=== PATIENT | male | born 1935 | race Caucasian/White ===

== ENCOUNTER 2020-04-09 11:09 | Outpatient (RCR) | payer MEDICARE, SELFPAY | END 2020-04-09 23:59 | LOC: IMMUN 11:09 | PROVIDERS: Visit Provider Family Medicine | DX: Z23 Encounter for immunization (principal) | CPT/HCPCS: 0011A; 0012A; 91301 ==

== ENCOUNTER → 2022-01-02 | Outpatient (CLI) | payer MEDICARE, SELFPAY ==
[2022-01-02 10:26] LABS: PSA,Total- Diagnostic 2.88 ng/mL (0.0-4.0)
== END | disposition home or self-care (01) ==
PROVIDERS: Referring Provider Urology; Visit Provider Urology
DX: N40.1 Benign prostatic hyperplasia with lower urinary tract symptoms (principal)
CPT/HCPCS: 36415; 84153

== ENCOUNTER 2022-01-18 12:05 | Observation (INO) | payer MEDICARE, SELFPAY ==
--- NOTE | 2022-01-16 07:42 | EKG12_ITS ---
Test Reason : PREOP Blood Pressure : / mmHG Vent. Rate : 090 BPM Atrial Rate : 090 BPM P-R Int : 162 ms QRS Dur : 144 ms QT Int : 400 ms P-R-T Axes : 045 -89 054 degrees QTc Int : 489 ms Normal sinus rhythm Right bundle branch block Left anterior fascicular block Bifascicular block Septal infarct , age undetermined Abnormal ECG Confirmed by PABLO CHIU, LAYNE ([id number]), newspaper or periodical editor TAO WEN ([id number]) on 01/17/2022 1:16:58 PM Referred By: Fernie Michelle Confirmed By:LAYNE SHAH MD
[2022-01-16 08:07] LABS: Hematocrit 43.5 % (40-54); Hemoglobin 14.4 g/dL (13.0-16.5); Mean Corp Hgb Conc 33.1 g/dL (32-36); Mean Corpuscular Hgb 30.9 pg (27.0-32.0); Mean Corpuscular Volume 93.3 fL (80-94); Mean Platelet Vol. 9.2 fl (6.2-12.0); Platelet Count 159 K/mm3 (150-450); RBC Distribution Width CV 13.8 % (11.6-14.6); RBC Distribution Width SD 47.4 fl (35.1-43.9); Red Blood Count 4.66 M/mm3 (4.6-6.2); White Blood Count 6.8 K/mm3 (4.4-11.0)
[2022-01-16 08:32] LABS: AST(SGOT) 15 U/L (15-37); Alanine Aminotransfer ALT/SGPT 17 U/L (16-61); Albumin, Serum 3.2 g/dL (3.2-5.0); Alkaline Phosphatase 70 U/L (45-117); Anion Gap 9 (5-15); BUN 19 mg/dL (7-18); BUN/Creat Ratio 16.2 RATIO (10-20); Bilirubin, Direct 0.15 mg/dL (0.00-0.30); Calcium,Total 8.8 mg/dL (8.5-10.1); Chloride 104 mmol/L (98-107); Creatinine, Serum 1.17 mg/dL (0.70-1.30); EST Glomerular Filtration Rate 63 mL/min (>60); Est Glom Filt Rate - Afr Amer 76 mL/min (>60); Globulin 3.5 g/dL (2.2-4.2); Glucose 128 mg/dL (74-106); Potassium 3.5 mmol/L (3.5-5.1); Protein, Total 6.7 g/dL (6.4-8.2); Sodium Level 141 mmol/L (136-145)
[2022-01-16 08:37] LABS: Partial Thromboplast Time 31.4 Seconds (24.1-36.2)
[2022-01-16 10:14] LABS: International Normalized Ratio 1.2; Prothrombin Time (Protime)PT. 14.8 SECONDS (11.7-14.9)
[2022-01-18] VITALS (12 sets, daily range): BP systolic 96–169; BP diastolic 47–82; PULSE 60–86; RESP 14–18; TEMP 36.3–37.1; O2SAT 92–99; BMI 30.7
[2022-01-18] MEDS: Lactated Ringers 1,000 ML 15 ML IV (11:15)
[2022-01-18] MEDS: Cefazolin 2 GM in 0.9% Normal Saline 100 ML IV (11:52)
--- NOTE | 2022-01-18 12:06 | DCINST_ITS ---
Discharge Instructions Diet Discharge Diet: No restrictions Follow Up Care Please Follow Up With: Fernie Michelle MD Test Results: Test results from this visit will be discussed in further detail at your follow- up appointment, if applicable. Discharge Plan Admission Primary Reason for Your Visit: hawa Attending Provider: Fernie Michelle Primary Care Provider: Agusto Wong Consulting Providers: Estevan Angulo Instructions Patient Instructions: HAWA Home Recovery Discharge Orders/Prescriptions Prescriptions: New ciprofloxacin HCl [Cipro] 500 mg tablet 500 mg PO BID Qty: 6 0RF Continued donepezil 10 mg Tablet 10 mg PO QHS simvastatin 40 mg Tablet 40 mg PO DAILY ascorbic acid (vitamin C) [Vitamin C] 500 mg Tablet 500 mg PO DAILY zinc 50 mg Tablet 50 mg PO DAILY cyanocobalamin-liver extract Tablet 1 tab PO DAILY cholecalciferol (vitamin D3) [Vitamin D3] 25 mcg (1,000 unit) Tablet 25 mcg PO DAILY loratadine 10 mg Capsule 10 mg PO DAILY PRN (Reason: ALLERGIES) Discontinued tamsulosin [Flomax] 0.4 mg Capsule 0.4 mg PO DAILY finasteride 5 mg Tablet 5 mg PO DAILY Other Ambulatory Orders: 12 Lead EKG (Routine) Timeframe: [id number] Location: None Selected Ordered By: Dr. Estevan Angulo Referrals / Follow Up: Fernie Michelle MD [Med Staff - Active Staff] - Agusto Wong DO [Primary Care Provider] - Disposition Disposition (needs filled in before D/C Order can be placed): Home, Self Care
--- NOTE | 2022-01-18 12:06 | HP.PCM_ITS ---
HPI - General HPI Narrative PAWAN JOSEPH, is a 86 M who presents for transurethral resection of the prostate he has very poor bladder control been having incontinence and leakage of urine hopefully with a resection of the prostate will improve his bladder control [facility] Medical History (Updated 01/11/22 @ 15:[address]) Alcohol use Ambulates with cane Arthritis Back pain Cancer Cardiology follow-up encounter Dementia Easy bruising Former smoker High cholesterol History of edema History of stress test Hypertension Leg cramps Prostate disease Shortness of breath on exertion Wears dentures Wears glasses Wears hearing aid Home Medications ascorbic acid (vitamin C) 500 mg tablet (Vitamin C) 500 mg PO DAILY SUPPLEMENT 01/11/22 [History Last Taken Unknown] cholecalciferol (vitamin D3) 25 mcg (1,000 unit) tablet (Vitamin D3) 25 mcg PO DAILY SUPPLEMENT 01/11/22 [History Last Taken Unknown] cyanocobalamin-liver extract tablet 1 tab PO DAILY SUPPLEMENT 01/11/22 [History Last Taken Unknown] donepezil 10 mg tablet 10 mg PO QHS DEMENTIA 01/11/22 [History Last Taken Unknown] loratadine 10 mg capsule 10 mg PO DAILY PRN ALLERGIES 01/11/22 [History Last Taken Unknown] simvastatin 40 mg tablet 40 mg PO DAILY HLD 01/11/22 [History Last Taken Unknown] zinc 50 mg tablet 50 mg PO DAILY SUPPLEMENT 01/11/22 [History Last Taken Unknown] ciprofloxacin HCl 500 mg tablet (Cipro) 500 mg PO BID #6 tabs 01/18/22 [Rx Last Taken Unknown] Allergy/AdvReac Type Severity Reaction Status Date / Time Penicillins AdvReac Vomiting Verified 01/18/22 11:01 Surgical History (Updated 01/11/22 @ 15:[address]) History of colectomy History of excision of lesion Hx of appendectomy Hx of bilateral cataract extraction Hx of bladder repair surgery Hx of right knee surgery Hx of tonsillectomy Social History Smoking Status: Former smoker Vital Signs Vital Signs Vital Signs: 01/18/22 11:03 01/18/22 11:05 Temperature 97.4 F L Temperature Source Temporal Pulse Rate 63 Respiratory Rate 18 Respiratory Pattern Normal Blood Pressure 169/82 H Blood Pressure Mean 111 Blood Pressure Source Monitor Blood Pressure Position Semi-Fowlers Blood Pressure Location Right Arm Pulse Ox 99 Oxygen Delivery Method Room Air Weight Weight: 94.574 kg Body Mass Index (BMI) 30.7 Results Lab / Micro Data Result Diagrams: 01/16/22 07:34 01/16/22 07:34
--- NOTE | 2022-01-18 12:07 | OP.PCM_ITS ---
Report of Operation Date of Procedure: 01/18/22 Pre-Operative Diagnosis: BPH with obstruction Post-Operative Diagnosis: BPH with obstruction Surgery/Procedure Performed:: Transurethral section of prostate Description of Surgical Findings:: In the preoperative setting I discussed with the patient how the surgery would be done with expect afterwards. We discussed how a prostate resection is done and we discussed the risk of the surgery including, bleeding, infection, retrograde ejaculation, changes with ejaculation or intercourse,. We discussed the possibility that the resection of the prostate may not alleviate his urinary symptoms. We discussed the small risk of developing scar tissue along the urethral channel and strictures. We also discussed the chance of the prostate could grow back and he may need further surgery or treatment in the future for prostate problems. Patient was taken back to the operating room, timeout procedure was performed, he was identified and marked and placed on the operating room table. He under went general anesthesia. He was placed in dorsolithotomy position. Penis and testicles were prepped and draped in usual sterile fashion. Went into the bladder using the visual obturator with a resectoscope. Once inside the bladder identified the right and left ureteral orifice. I then identified the prostate and the anatomy of the prostate. I marked out the area of the sphincter and the verumontanum was identified. I then proceeded with the prostate resection first resected the median lobe. And then resected the right lobe of the prostate. Then to resect the left lobe of the prostate. I then resected the apical tissue of the prostate. This was a complete resection of all obstructive tissue to improve voiding and relieve obstruction. I then made sure that there was no injury to the sphincter or the verumontanum was still intact. At the end of the resection all the chips were Ellik out of the bladder. I then identified the left and right ureteral orifice and these were confirmed to be in good position and effluxing and not injured. The resectoscope was removed, a 22 Grenadian catheter was placed into the bladder on continuous irrigation. And the urine was fairly light pink color and draining normally. He was taken back to the PACU in good condition. CPT 26835 Surgeon: Fernie Michelle Type of Anesthesia: General Drains: 22 Grenadian three-way Rosales Admit VTE Documentation VTE Present on Admission: No VTE Mechan Device Prophylaxis: SCD's VTE Pharm Prophylaxis ordered?: No
--- NOTE | 2022-01-18 12:45 | PROS_PTH ---
PATIENT: PAWAN JOSEPH LOC: MS3 U#:[id number] AGE/SX: 86/M ROOM: ND305 RE01/18/[address]: Dr. Fernie Michelle MD : [id number] BED: 1 DIS: 01/19/2022 SPEC #: [id number] RECD: 01/18/22 15:14 STATUS: JUAQUIN SUAZO #: [id number] MAIKOL: 01/18/22 12:[address]: Fernie Michelle DEPT: SURGICAL PATHOLOGY RECD BY: Devika Ruiz ENTERED: 01/19/22 09:03 SP TYPE: TURP OTHR DR: MD Dr. Agusto Paul, DO Tissues: Prostate, NOS Procedures: Surgery Specimen Level IV HEADER OPERATION: Cysto, TUR prostate, Olympus PRE-OP DIAGNOSIS: BPH, bladder outlet obstruction TISSUE SUBMITTED: Prostate chips MICROSCOPIC DIAGNOSIS Prostate, transurethral resection: Benign nodular hyperplasia, glandular and stromal types. Chronic inflammation. AM:miranda 01/20/2022 MICROSCOPIC DESCRIPTION Slides are reviewed. GROSS DESCRIPTION Received is one container labeled with the patient's name and designated prostate chips. The specimen consists of multiple irregular fragments of pink-taylor, rubbery, soft tissue that in aggregate weigh 28.6 gm and measure in aggregate 6 x 6 x 2 cm. Manager Solar portions are submitted in ten cassettes. / AM:miranda 01/19/2022 TC:3 CPT: 09777
[2022-01-18] MEDS: 0.9% Normal Saline 1,000 ML 125 ML IV (16:28)
[2022-01-18] MEDS: Atorvastatin Calcium 20 MG Tablet PO (21:48)
[2022-01-18] MEDS: Donepezil HCl 10 MG Tablet PO (21:49)
[2022-01-18] MEDS: Docusate Sodium 100 MG Capsule 200 MG PO (21:49)
[2022-01-18] MEDS: Ciprofloxacin 400 MG/200 ML BAG 200 MG IV (21:53)
[2022-01-19] MEDS: 0.9% Normal Saline 1,000 ML 125 ML IV ×2 (01:05→09:33)
[2022-01-19 02:05] VITALS: BP 120/60; PULSE 74; RESP 16; TEMP 36.6; O2SAT 95
[2022-01-19 05:08] VITALS: BP 112/60; PULSE 72; RESP 16; TEMP 37.2; O2SAT 94
--- NOTE | 2022-01-19 07:36 | PCM.PN.GU ---
Subjective Subjective Status post TURP urine is clear KELLY Rosales today home after voids Objective Data Objective Data Vital Signs: Vital Signs Temp Pulse Resp BP Pulse Ox O2 Del Method 98.9 F 72 16 112/60 94 Room Air 01/19/22 05:08 01/19/22 05:08 01/19/22 05:08 01/19/22 05:08 01/19/22 05:08 01/19/22 05:08 Oxygen Delivery Method Room Air Weight: 94.574 kg Body Mass Index (BMI) 30.7 Intake & Output: Intake and Output for Last 24 Hours 01/17/22 01/18/22 01/19/22 23:59 23:59 23:59 Intake Total 1387.25 / 1387.25 1000 / 1000 Output Total 7270 / 7270 4000 / 4000 Balance -5882.75 / -5882.75 -3000 / -3000 Lab / Micro Data Result Diagrams: 01/16/22 07:34 01/16/22 07:34
[2022-01-19 08:20] VITALS: BP 111/57; PULSE 71; RESP 18; TEMP 37.1; O2SAT 95
[2022-01-19] MEDS: Docusate Sodium 100 MG Capsule 200 MG PO (10:07)
[2022-01-19] MEDS: Ciprofloxacin 400 MG/200 ML BAG 200 MG IV (10:08)
[2022-01-19] MEDS: Acetaminophen 325 MG Tablet PO (10:13)
== END 2022-01-19 14:00 | disposition home or self-care (01) ==
LOC: SDC 12:22 → MS3 12:22
PROVIDERS: Anesthesiology; Admitting Provider Urology; Referring Provider Urology; Visit Provider Urology
PROC: (CPT 52601; principal; 2022-01-18 12:35)
DX: N40.1 Benign prostatic hyperplasia with lower urinary tract symptoms (principal); Z87.891 Personal history of nicotine dependence; E78.00 Pure hypercholesterolemia, unspecified; I10 Essential (primary) hypertension; N13.8 Other obstructive and reflux uropathy; R35.0 Frequency of micturition; R35.1 Nocturia; R32 Unspecified urinary incontinence; Z79.899 Other long term (current) drug therapy; R06.02 Shortness of breath
CPT/HCPCS: 52601; 00914; 36415; 80048; 80076; 85027; 85610; 85730; 88305; 93005; 96361; 96365; 96366; 99218; 99251; J7030; J7120; G0378; G0463; J0744; J2405

== ENCOUNTER → 2022-11-27 | Outpatient (CLI) | payer MEDICARE, SELFPAY | END | disposition home or self-care (01) | LOC: LABSPEC 16:17 | PROVIDERS: Visit Provider Urology | DX: R31.9 Hematuria, unspecified (principal) | CPT/HCPCS: 87077; 87086; 87088; 87186 ==

== ENCOUNTER 2023-06-11 19:12 | Observation (INO) | payer MEDICARE, SELFPAY ==
[2023-06-11 19:04] VITALS: BP 141/89; PULSE 95; RESP 23; TEMP 36.7; O2SAT 96; BMI 33.0
[2023-06-11 19:16] VITALS: BP 141/104; PULSE 96; RESP 17; O2SAT 98
--- NOTE | 2023-06-11 19:39 | EKG12_ITS ---
Test Reason : CP Blood Pressure : / mmHG Vent. Rate : 095 BPM Atrial Rate : 095 BPM P-R Int : 170 ms QRS Dur : 140 ms QT Int : 374 ms P-R-T Axes : 047 -83 020 degrees QTc Int : 469 ms Normal sinus rhythm Right bundle branch block Left anterior fascicular block Bifascicular block Abnormal ECG Confirmed by Ankit Cancino ([id number]), editor continuity and script TAO WEN ([id number]) on 06/12/2023 1:46:13 PM Referred By: Jerson Saucedo Confirmed By:Ankit Cancino
--- NOTE | 2023-06-11 19:40 | EDS_ITS ---
HPI History of Present Illness Chief Complaint: Chest Pain Informant: patient and family Narrative Narrative: Patient presents via EMS secondary to chest pain. Patient has a history of dementia. He admits to having some chest pain earlier today but cannot tell me what time that was or how long it lasted. He denies any chest pain at this time. He reported to nursing staff that he still has a headache that he has had all day. He at this time he tells me he really does not have much of a headache. Prehospital EKG showed what appeared to be A-fib RVR which converted to sinus rhythm on the EKG. I cannot see the patient has a known history of A-fib. [facility] Medical History Alcohol use Ambulates with cane Arthritis Back pain Cancer Cardiology follow-up encounter Dementia Easy bruising Former smoker High cholesterol History of edema History of stress test Hypertension Leg cramps Prostate disease Shortness of breath on exertion Wears dentures Wears glasses Wears hearing aid Home Medications cholecalciferol (vitamin D3) 25 mcg (1,000 unit) tablet (Vitamin D3) 25 mcg PO DAILY SUPPLEMENT 01/11/22 [History Last Taken Unknown] donepezil 10 mg tablet 10 mg PO QHS DEMENTIA 01/11/22 [History Last Taken Unknown] aripiprazole 2 mg tablet 2 mg PO DAILY 06/11/23 [History Last Taken Unknown] meloxicam 15 mg tablet 15 mg PO DAILY 06/11/23 [History Last Taken Unknown] tamsulosin 0.4 mg capsule 0.4 mg PO DAILY 06/11/23 [History Last Taken Unknown] Allergy/AdvReac Type Severity Reaction Status Date / Time Penicillins AdvReac Vomiting Verified 01/18/22 11:01 Surgical History History of colectomy History of excision of lesion Hx of appendectomy Hx of bilateral cataract extraction Hx of bladder repair surgery Hx of right knee surgery Hx of tonsillectomy Social History Smoking Status: Former smoker ROS ROS ED Constitutional Constitutional ED: Denies chills or fever(s) Eyes Eyes: Denies change in vision or discharge from eye(s) ENT ENT ED: Denies discharge from eye(s), rhinorrhea or sore throat Cardiovascular Cardiovascular: Reports chest pain; Denies palpitations Respiratory/Chest Respiratory/Chest: Reports cough and dyspnea Gastrointestinal Gastrointestinal: Denies abdominal pain, nausea or vomiting Genitourinary Genitourinary ED: Denies dysuria Musculoskeletal Musculoskeletal: Denies back pain or extremity pain Integumentary Denies Abrasions or rash Neurologic Neurologic: Reports headache(s); Denies weakness Allergic/Immunologic Allergic/Immunologic ED: Denies lip swelling or urticaria EXAM Physical Exam Const Vital Signs: 06/11/23 19:04 06/11/23 19:16 06/11/23 19:39 Temperature 98.0 F Temperature Source Oral Pulse Rate 95 96 Respiratory Rate 23 H 17 Blood Pressure 141/89 H 141/104 H Blood Pressure Mean 106 116 Pulse Ox 96 98 Oxygen Delivery Method Room Air Room Air Room Air 06/11/23 21:02 Temperature Temperature Source Pulse Rate 77 Respiratory Rate 21 H Blood Pressure 142/90 H Blood Pressure Mean 107 Pulse Ox 96 Oxygen Delivery Method Room Air Positive well nourished and well developed General Appearance ED: well developed HEENT Reports moist mucous membranes Chest Wall inspection of chest normal Chest Narrative: Patient does have tenderness palpation along the left sternal border. No crepitus noted. No overlying skin change. Resp normal respiratory effort and clear to auscultation bilaterally Cardio regular rate and regular rhythm GI non-tender Palpation: soft Extremity normal to inspection Neuro Neuro Narrative: Patient alert and answers questions appropriately. He admits to having a poor memory and cannot tell me about prior diagnoses. Skin no rashes or lesions noted MDM MDM MDM Narrative Medical decision making narrative: Patient placed on monitor car operator. EKG obtained to evaluate for cardiac arrhythmia/ischemia. Chest x-ray obtained to evaluate for acute lung pathology, cardiac size, or mediastinal abnormality. Labwork obtained to evaluate for leukocytosis, anemia, and electrolyte derangement. History & Record Review Discussion w/independent historian: Patient and Family Lab Data Attestation: I reviewed the patient's lab results. Labs: Laboratory Results - last 24 hr 06/11/23 06/11/23 19:20 22:00 WBC 5.9 RBC 4.51 L Hgb 13.7 Hct 42.3 MCV 93.8 MCH 30.4 MCHC 32.4 RDW Std Deviation 50.2 H RDW Coeff of Aleksandra 14.5 Plt Count 155 MPV 9.3 Immature Gran % (Auto) 0.700 Neut % (Auto) 72.2 H Lymph % (Auto) 17.2 L Monroe % (Auto) 7.3 Eos % (Auto) 1.9 Baso % (Auto) 0.7 Absolute Neuts (auto) 4.3 Absolute Lymphs (auto) 1.02 Nucleated RBC % 0 Sodium 140 Potassium 4.0 Chloride 109 H Carbon Dioxide 27.0 Anion Gap 4 L BUN 25 H Creatinine 1.01 Estim Creat Clear Calc 59.81 Est GFR (MDRD) Af Amer 90 Est GFR (MDRD) Non-Af 74 BUN/Creatinine Ratio 24.8 H Glucose 100 Calcium 8.6 Troponin I High Sens 38 66 Radiography Chest X-Ray - ED: 1 View, Read by ED Physician, Chronic Changes and No Infiltrates Diagnostic Testing: Clinical Impression(s) from Imaging Studies Chest X-Ray 06/11/23 20:05 IMPRESSION: No active disease. Electronically Signed: Pablito Kline MD at 20:29 EDT , EKG Initial EKG: Attestation: I personally reviewed and interpreted this EKG as follows: Interpretation: Sinus Rhythm (Sinus at 95 with bifascicular block. No acute ischemia.) Treatment and Re-Evaluation :: CBC was normal white count 5.9 with a hemoglobin of 13.7. 72% neutrophils noted. Chemistry studies unremarkable. Initial troponin is 38 with a 2-hour repeat troponin of 66. EKG is sinus rhythm with bifascicular block. No evidence of obvious ischemia. As previously mentioned, prehospital EKG showed A-fib RVR with ventricular rate around 160. He converted to sinus rhythm on this EKG. Initial plan had been to speak with PCP and send patient home if delta troponin was normal. Troponin did rise of more than 20 points and therefore patient does need to be observed for further treatment. I will speak with the hospitalist. Discharge Plan Triage Chief Complaint: Chest Pain ED Provider: Kandy Leung Dx/Rx/DC Orders Clinical Impression: Paroxysmal A-fib, Chest pain Prescriptions: No Action donepezil 10 mg Tablet 10 mg PO QHS cholecalciferol (vitamin D3) [Vitamin D3] 25 mcg (1,000 unit) Tablet 25 mcg PO DAILY meloxicam 15 mg tablet 15 mg PO DAILY tamsulosin 0.4 mg capsule 0.4 mg PO DAILY aripiprazole 2 mg tablet 2 mg PO DAILY Primary Care Provider: Agusto Wong Referrals: Agusto Wong DO [Primary Care Provider] - Disposition Disposition: Acute Care Hospital [facility]
[2023-06-11 20:01] LABS: Absolute Lymphocyte Count 1.02 X10^3/uL (0.83-4.51); Absolute Neutrophil Count 4.3 X10^3/uL (2.0-7.7); Basophil# 0.04 X10^3/uL; Basophil% 0.7 % (0-1); Eosinophil# 0.11 X10^3/uL; Eosinophils% 1.9 % (0-5); Hematocrit 42.3 % (40-54); Hemoglobin 13.7 g/dL (13.0-16.5); Lymphocyte # 1.02 X10^3/ul (0.83-4.51); Lymphocyte % 17.2 % (19-41); Mean Corp Hgb Conc 32.4 g/dL (32-36); Mean Corpuscular Hgb 30.4 pg (27.0-32.0); Mean Corpuscular Volume 93.8 fL (80-94); Mean Platelet Vol. 9.3 fl (6.2-12.0); Monocyte# 0.43 X10^3/uL; Monocyte% 7.3 % (0-10); NRBC Flagged by Analyzer 0 % (0-5); Neutrophil # 4.28 X10^3/uL (2.7-7.7); Neutrophil % 72.2 % (47-70); Platelet Count 155 K/mm3 (150-450); RBC Distribution Width CV 14.5 % (11.6-14.6); RBC Distribution Width SD 50.2 fl (35.1-43.9); Red Blood Count 4.51 M/mm3 (4.6-6.2); White Blood Count 5.9 K/mm3 (4.4-11.0)
--- NOTE | 2023-06-11 20:05 | RAD_ITS ---
STUDY: X-RAY CHEST REASON FOR EXAM: Male, 88 years old. chest pain TECHNIQUE: Single AP portable view of the chest. COMPARISON: None. FINDINGS: The lungs are clear and expanded. Elevated left hemidiaphragm. Normal size heart. Normal mediastinum and stephen. Normal visualized pulmonary arteries. Normal visualized aortic arch and descending thoracic aorta. Normal visualized thoracic spine. Normal visualized ribs, clavicles, and shoulders. There is no demonstrated abnormality of the visualized soft tissue structures of the upper abdomen. RAD/Chest 1 View (Portable) IMPRESSION: No active disease. Electronically Signed: Pablito Kline MD at 20:29 EDT ,
[2023-06-11] MEDS: Aspirin 81 MG TAB.CHEW 324 MG PO (20:09)
[2023-06-11 20:25] LABS: Anion Gap 4 (5-15); BUN 25 mg/dL (7-18); BUN/Creat Ratio 24.8 RATIO (10-20); Calcium,Total 8.6 mg/dL (8.5-10.1); Chloride 109 mmol/L (98-107); Creatinine, Serum 1.01 mg/dL (0.70-1.30); EST Glomerular Filtration Rate 74 mL/min (>60); Est Glom Filt Rate - Afr Amer 90 mL/min (>60); Estimated Creatinine Clearance 59.81 ml/min; Glucose 100 mg/dL (74-106); Sodium Level 140 mmol/L (136-145); Troponin-I HS (w/2H Reflex) 38 pg/mL (3.0-78.0)
[2023-06-11 21:02] VITALS: BP 142/90; PULSE 77; RESP 21; O2SAT 96
[2023-06-11 21:55] LABS: Reflex Troponin-HS? (from REC) Y
[2023-06-11 22:40] LABS: Troponin-I HS 66 pg/mL (3.0-78.0)
[2023-06-11 23:00] VITALS: BP 151/91; PULSE 67; RESP 19; O2SAT 97
[2023-06-11 23:06] VITALS: BP 151/91; PULSE 64; RESP 22; TEMP 36.6; O2SAT 97
--- NOTE | 2023-06-11 23:13 | PCM.HP.STD ---
[facility] - General General Date of Admission: 06/11/23 Date of Service: 06/11/23 Chief Complaint: Chest Pain. HPI Narrative PAWAN BEARDEN, is a 88 M with a past medical history of essential hypertension, hyperlipidemia, obesity; with BMI of 33.1 this admission, history of previous tobacco abuse, history of occasional alcohol abuse, history of colon cancer; status post colectomy, history of appendectomy, dementia; on donepezil, BPH, chronic leg cramps and osteoarthritis; with history of right knee surgery who presents to [facility] ER complaining of chest pain. Mr. Bearden is not a fully reliable historian due to his history of dementia but he does admit that his symptoms began earlier today but cannot pinpoint exactly when it started or how long it lasted. He denies chest pain at this time but when EMS was activated his preadmission EKG appeared to be consistent with atrial fibrillation with rapid ventricular response that converted to normal sinus rhythm en-route. He denies associated fever, chills, nausea, vomiting, palpitations, lower extremity edema or other recent illness. In the ER he was noted to have a mild elevation of his initial troponin of 38 pg/mL that cammie to 66 pg/mL causing the ER physician to seek admission due to a delta of 20 in this number (with a normal range from 3 to 78 pg/mL) complicated by suspected paroxysmal atrial fibrillation with rapid ventricular response that is now apparently spontaneously converted to normal sinus rhythm and he was then admitted to the CDU under observation status for stay that is expected to be less than 48 hours. [facility] Medical History Alcohol use Ambulates with cane Arthritis Back pain Cancer Cardiology follow-up encounter Dementia Easy bruising Former smoker High cholesterol History of edema History of stress test Hypertension Leg cramps Prostate disease Shortness of breath on exertion Wears dentures Wears glasses Wears hearing aid Home Medications cholecalciferol (vitamin D3) 25 mcg (1,000 unit) tablet (Vitamin D3) 25 mcg PO DAILY SUPPLEMENT 01/11/22 [History Last Taken Unknown] donepezil 10 mg tablet 10 mg PO QHS DEMENTIA 01/11/22 [History Last Taken Unknown] aripiprazole 2 mg tablet 2 mg PO DAILY 06/11/23 [History Last Taken Unknown] meloxicam 15 mg tablet 15 mg PO DAILY 06/11/23 [History Last Taken Unknown] tamsulosin 0.4 mg capsule 0.4 mg PO DAILY 06/11/23 [History Last Taken Unknown] Allergy/AdvReac Type Severity Reaction Status Date / Time Penicillins AdvReac Vomiting Verified 01/18/22 11:01 Surgical History History of colectomy History of excision of lesion Hx of appendectomy Hx of bilateral cataract extraction Hx of bladder repair surgery Hx of right knee surgery Hx of tonsillectomy Social History Smoking Status: Former smoker ROS ROS Narrative Patient is confused due to dementia so he could not complete a detailed ROS. Review of Systems ROS Unobtainable: due to mental condition Vital Signs Vital Signs Vital Signs: 06/11/23 19:04 06/11/23 19:16 06/11/23 19:39 Temperature 98.0 F Temperature Source Oral Pulse Rate 95 96 Respiratory Rate 23 H 17 Blood Pressure 141/89 H 141/104 H Blood Pressure Mean 106 116 Pulse Ox 96 98 Oxygen Delivery Method Room Air Room Air Room Air 06/11/23 21:02 06/11/23 23:06 06/11/23 23:00 Temperature 97.8 F Temperature Source Pulse Rate 77 64 67 Respiratory Rate 21 H 22 H 19 H Blood Pressure 142/90 H 151/91 H 151/91 H Blood Pressure Mean 107 111 108 Pulse Ox 96 97 97 Oxygen Delivery Method Room Air Weight Weight: 217 lb 11.2 oz Body Mass Index (BMI) 33.0 Physical Exam Const alert, no apparent distress, average body habitus and healthy appearing Constitutional Narrative: Patient is A&Ox2. NAD. General Appearance: cooperative Orientation / Consciousness: confused HEENT normocephalic, head/scalp atraumatic, hearing grossly normal bilaterally and moist oral mucous membranes Eyes PERRL and EOMs intact bilaterally Neck no lymphadenopathy and supple Resp normal respiratory effort, no retractions, no use of accessory muscles and clear to auscultation bilaterally Cardio regular rate and regular rhythm GI normal to inspection, nondistended, normoactive bowel sounds, soft to palpation, non-tender and non-distended Extremity normal to inspection, full ROM and no clubbing, cyanosis or edema Skin Skin Narrative: Patient has no evidence of rash. Neuro CN's II-XII intact bilaterally, moves all extremities and no focal motor deficits Sensorium / Orientation: awake, alert, oriented to person and oriented to place Speech: speech normal Psych affect normal Results Medical Records Data Attestation: I reviewed the patient's medical records Lab / Micro Data Attestation: I reviewed the patient's lab results. 06/12/23 02:19 06/12/23 02:19 Labs: Laboratory Results - last 24 hr 06/11/23 19:20: WBC 5.9, RBC 4.51 L, Hgb 13.7, Hct 42.3, MCV 93.8, MCH 30.4, MCHC 32.4, RDW Std Deviation 50.2 H, RDW Coeff of Aleksandra 14.5, Plt Count 155, MPV 9.3, Immature Gran % (Auto) 0.700, Neut % (Auto) 72.2 H, Lymph % (Auto) 17.2 L, [place] % (Auto) 7.3, Eos % (Auto) 1.9, Baso % (Auto) 0.7, Absolute Neuts (auto) 4.3, Absolute Lymphs (auto) 1.02, Nucleated RBC % 0, Sodium 140, Potassium 4.0, Chloride 109 H, Carbon Dioxide 27.0, Anion Gap 4 L, BUN 25 H, Creatinine 1.01, Estim Creat Clear Calc 59.81, Est GFR (MDRD) Af Amer 90, Est GFR (MDRD) Non-Af 74, BUN/Creatinine Ratio 24.8 H, Glucose 100, Calcium 8.6, Troponin I High Sens 38 06/11/23 22:00: Troponin I High Sens 66 Imaging Radiology Impression Chest X-Ray 06/11/23 20:05 IMPRESSION: No active disease. Electronically Signed: Pablito Kline MD at 20:29 EDT , Assessment & Plan Assessment/Plan (1) Chest pain: QUALIFIERS: Chest pain type: unspecified Qualified Code(s): R07.9 - Chest pain, unspecified (2) Paroxysmal A-fib: PLAN: Plan 1. Chest pain; with 2 upward trending troponins both within normal range - Admit to CDU under observation status. Serialize troponin. Check echocardiogram to evaluate left ventricular ejection fraction. Check Lexiscan nuclear stress test in a.m. to evaluate for underlying ischemia. Continue ECASA plus as needed sublingual nitroglycerin. Give Tylenol as needed for mild to moderate level 1-5 pain or fever. Give morphine IV for severe level 6-10 out of 10 pain. 2. Preadmission EKG suspicious for paroxysmal atrial fibrillation; with rapid ventricular response complicating #1 - Patient currently in normal sinus rhythm. Placed on dog walker to assess for any recurrences. Check TSH. Is important to note that patient's family does not want him on full anticoagulation with NOAC because he lives alone and is a fall risk. They are okay with aspirin and AV-shamika blocking agent so he was ordered BASA and low-dose oral Cardizem CD. 3. Essential hypertension - Continue home regimen plus give IV hydralazine as needed for systolic blood pressure greater than 160 mmHg. 4. Dementia - Resume donepezil as previous. 5. Hyperlipidemia - Check lipid profile with patient currently not taking a statin. 6. Obesity; with BMI of 33.1 this admission - Weight loss will be recommended. Check TSH. 7. History of previous tobacco abuse - Noted. 8. History of occasional alcohol use - Noted. 9. History of colon cancer; status post colectomy - Stable. 10. History of appendectomy - Noted. 11. BPH - Resume tamsulosin as previous. 12. Chronic leg cramps - Stable. 13. Osteoarthritis; with history of right knee surgery - Give Tylenol prn. 14. DVT prophylaxis - Lovenox 40 mg subcu daily. Total time: Approximately 45 minutes. Charges/Coding Visit Charges OBSV E&M: 33606 Observ/hosp same date L1
--- NOTE | 2023-06-12 00:08 | ECHOCS_ITS ---
Reason For Study: CHEST PAIN Procedure This was a 2D Doppler, Color Flow transthoracic echocardiogram. The study was technically difficult. Exam performed in department. Left Ventricle Normal left ventricle. The estimated ejection fraction is 55-60 %. Right Ventricle Normal right ventricle. Normal systolic function. Atria Normal left atrium. Normal right atrium. Mitral Valve There is mild to moderate mitral annular calcification. Trivial mitral valve insufficiency. Tricuspid Valve Normal tricuspid valve. Aortic Valve Mild diffuse aortic valve calcification. Pulmonic Valve The pulmonic valve is not well visualized. Pericardium/Pleural Small pericardial effusion. Medication Diluted definity 2ml given slow IV push to enhance endocardial definition. MMode/2D Measurements & Calculations LVIDd: 3.8 cm IVSd: 1.00 cm Ao root diam: 3.2 cm LVIDs: 2.7 cm LVPWd: 0.90 cm RVDd: 3.3 cm FS: 29.8 % LAV(MOD-bp): 36.6 ml LVAd ap4: 29.4 cm2 SV(MOD-sp4): 52.9 ml LAV(MOD-bp) Indexed: 17.9 ml/m2 LVLd ap4: 8.2 cm LAV(MOD-sp2): 39.2 ml EDV(MOD-sp4): 86.5 ml LAV(MOD-sp4): 30.7 ml EDV(sp4-el): 90.1 ml LVAs ap4: 16.9 cm2 LVLs ap4: 7.1 cm ESV(MOD-sp4): 33.5 ml ESV(sp4-el): 34.0 ml EF(MOD-sp4): 61.2 % EF(sp4-el): 62.3 % SV(sp4-el): 56.1 ml LA A4 area: 13.7 cm2 LA dimension(2D): 3.5 cm RA A4 area: 11.0 cm2 TAPSE: 2.0 cm Time Measurements MV dec time: 0.32 sec Doppler Measurements & Calculations MV E max stephan: 88.6 cm/sec Lat Peak E' Stephan: 9.1 cm/sec Med Peak E' Stephan: 8.3 cm/sec MV A max stephan: 101.3 cm/sec E/E' lat: 9.7 E/E' med: 10.6 MV E/A: 0.87 Ao V2 max: 126.7 cm/sec LV V1 max: 114.0 cm/sec PA V2 max: 79.2 cm/sec Ao max P.4 mmHg LV V1 max P.2 mmHg TR max stephan: 252.1 cm/sec TR max P.4 mmHg ECHO/Echo Complete W/ Contrast Interpretation Summary The estimated ejection fraction is 55-60 %. Grade # 1 Diastolic Dysfunction Contrast Echo used/Definity Ordering Physician: Jerson Saucedo Referring Physician: SURY HENNESSY Performed By: Marva Sheets RDCS
[2023-06-12 00:13] VITALS: BMI 30.2
[2023-06-12 00:20] VITALS: BP 159/79; PULSE 63; RESP 18; TEMP 36.4; O2SAT 98
[2023-06-12 02:29] LABS: Absolute Lymphocyte Count 1.08 X10^3/uL (0.83-4.51); Absolute Neutrophil Count 3.1 X10^3/uL (2.0-7.7); Basophil# 0.03 X10^3/uL; Basophil% 0.6 % (0-1); Eosinophil# 0.12 X10^3/uL; Eosinophils% 2.5 % (0-5); Hematocrit 39.7 % (40-54); Hemoglobin 12.7 g/dL (13.0-16.5); Lymphocyte # 1.08 X10^3/ul (0.83-4.51); Lymphocyte % 22.6 % (19-41); Mean Corpuscular Hgb 29.7 pg (27.0-32.0); Mean Corpuscular Volume 92.8 fL (80-94); Mean Platelet Vol. 9.1 fl (6.2-12.0); Monocyte# 0.38 X10^3/uL; Monocyte% 7.9 % (0-10); NRBC Flagged by Analyzer 0 % (0-5); Neutrophil # 3.14 X10^3/uL (2.7-7.7); Neutrophil % 65.8 % (47-70); Platelet Count 140 K/mm3 (150-450); RBC Distribution Width CV 14.6 % (11.6-14.6); RBC Distribution Width SD 50.1 fl (35.1-43.9); Red Blood Count 4.28 M/mm3 (4.6-6.2); White Blood Count 4.8 K/mm3 (4.4-11.0)
--- NOTE | 2023-06-12 02:30 | EKG12_ITS ---
Test Reason : CP Admission Blood Pressure : / mmHG Vent. Rate : 063 BPM Atrial Rate : 063 BPM P-R Int : 172 ms QRS Dur : 148 ms QT Int : 462 ms P-R-T Axes : 060 -66 -13 degrees QTc Int : 472 ms Normal sinus rhythm Right bundle branch block Left anterior fascicular block Bifascicular block Abnormal ECG When compared with ECG of 11-JUN-2023 18:59, MANUAL COMPARISON REQUIRED, DATA IS UNCONFIRMED Confirmed by PABLO CHIU, LAYNE ([id number]), editor map TAO WEN ([id number]) on 06/13/2023 1:26:15 PM Referred By: Jerson Saucedo Confirmed By:LAYNE SHAH MD
[2023-06-12 02:44] LABS: Troponin-I HS 76 pg/mL (3.0-78.0)
[2023-06-12 02:50] LABS: ALB/GLOB Ratio 1.4 RATIO (0.9-2.4); AST(SGOT) 12 U/L (15-37); Alanine Aminotransfer ALT/SGPT 11 U/L (16-61); Albumin, Serum 3.4 g/dL (3.2-5.0); Alkaline Phosphatase 48 U/L (45-117); Anion Gap 5 (5-15); BUN 22 mg/dL (7-18); BUN/Creat Ratio 21.6 RATIO (10-20); Calcium,Total 8.2 mg/dL (8.5-10.1); Chloride 110 mmol/L (98-107); Cholesterol 193 mg/dL (200); Creatinine, Serum 1.02 mg/dL (0.70-1.30); EST Glomerular Filtration Rate 74 mL/min (>60); Est Glom Filt Rate - Afr Amer 89 mL/min (>60); Estimated Creatinine Clearance 56.82 ml/min; Globulin 2.5 g/dL (2.2-4.2); Glucose 98 mg/dL (74-106); High Density Lipoprotein 38 mg/dL; Potassium 3.9 mmol/L (3.5-5.1); Protein, Total 5.9 g/dL (6.4-8.2); Sodium Level 139 mmol/L (136-145); Triglycerides 113 mg/dL; Very Low Density Lipoprotein 23 mg/dL (5-40)
[2023-06-12 05:25] VITALS: BP 127/56; PULSE 57; RESP 16; TEMP 36.6; O2SAT 97
[2023-06-12] MEDS: Aspirin E.C. 81 MG Tablet PO (05:26)
[2023-06-12 09:06] LABS: Thyroid Stim Hormone (TSH) 1.06 uIU/mL (0.358-3.74)
[2023-06-12 12:36] VITALS: BP 159/76; PULSE 63; RESP 16; TEMP 36.4; O2SAT 100
[2023-06-12] MEDS: ARIPiprazole 2 MG Tablet PO (12:44)
[2023-06-12] MEDS: Cholecalciferol (VIT D3) 25 MCG TABLET (1,000 UNITS) PO (12:44)
[2023-06-12] MEDS: Tamsulosin HCl 0.4 MG Capsule PO (12:44)
[2023-06-12] MEDS: dilTIAZem CD 120 MG Capsule PO (12:44)
--- NOTE | 2023-06-12 12:45 | STRESSREP_ITS ---
Stress Test Report Pharmacologic/Lexiscan myocardial perfusion stress test. Indication; 88-year-old patient who had history of colon cancer and underwent colectomy. History of dementia atrial fibrillation osteoarthritis benign prostatic hypertrophy Has symptoms of chest pain and is scheduled for nuclear stress test. Stress protocol: Resting EKG demonstrates. Normal sinus rhythm. Right bundle branch block 0.4 mg of regadenoson was infused per usual protocol followed by rapid intravenous saline flush injection continuous EKG monitoring was performed. The maximum heart rate attained was 80 bpm which was 59% of maximum predicted heart . Stress EKG showed[, no significant change from the resting EKG, with maximum heart rate of 80 bpm. Arrhythmia: No arrhythmia demonstrated Symptoms: Patient had no symptoms of chest pain Blood pressure at rest: 120/80 mmHg blood pressure at the end of stress: 168/90 mmHg Myocardial perfusion protocol. [12 mCi ]of Technetium 99m Sestamibi was injected at rest. [ 0.4 mg ]of Regadenoson was infused per usual protocol peak infusion 36 mCi ]of Technetium 99m sestamibi was injected. Stress images were obtained stress and rest images were reconstructed and compared in the short axis vertical and horizontal long axis. Gated images were also obtained Perfusion SPECT analysis: Review of the images demonstrate normal uptake of sestamibi at rest, post stress images demonstrate similar uptake of sestamibi to the resting images, homogeneous tracer uptake With no evidence of reversible myocardial ischemia. Gated SPECT analysis: The gated ejection fraction is 66% Normal LV wall motion Normal LV systolic function Conclusion: Negative Lexiscan sestamibi myocardial perfusion study for reversible myocardial ischemia Normal LV systolic function and normal LV wall motion Correlate with clinical presentation Kirstin Krause MD,FACC,[facility]
--- NOTE | 2023-06-12 14:22 | PCM.DC ---
Discharge Instructions Diet Discharge Diet: No restrictions Activity Discharge Activity: No Restrictions Weight Bearing Status: Full weight bearing Follow Up Care Test Results: Test results from this visit will be discussed in further detail at your follow-up appointment, if applicable. Discharge Plan Admission Admit Date/Time: 06/11/23 23:29 Primary Reason for Your Visit: Chest pain, concern for newly diagnosed A-fib with RVR Attending Provider: Omar Piña Primary Care Provider: Agusto Wong Consulting Providers: Jerson Saucedo Instructions Additional Instructions / Restrictions: Please wear heart monitor for 30 days as we discussed. Cardiology office will call to schedule an appointment for you as needed. Discharge Orders/Prescriptions Prescriptions: Continued donepezil 10 mg Tablet 10 mg PO QHS cholecalciferol (vitamin D3) [Vitamin D3] 25 mcg (1,000 unit) Tablet 25 mcg PO DAILY meloxicam 15 mg tablet 15 mg PO DAILY tamsulosin 0.4 mg capsule 0.4 mg PO DAILY aripiprazole 2 mg tablet 2 mg PO DAILY Other Ambulatory Orders: 30 Day Event Recorder Preventi (Urgent) Timeframe: 1 Month Facility: [facility] - Location: Cardiovascular Services Ordered By: Dr. Omar Piña Referrals / Follow Up: Agusto Wong DO [Primary Care Provider] - Disposition Disposition (needs filled in before D/C Order can be placed): Home, Self Care
--- NOTE | 2023-06-12 14:25 | PCM.DC.SUM ---
Providers Date of Admission: 06/11/23 Date of Discharge: 06/12/23 Primary Care Physician: Dr. Agusto Wong, Reason For Visit: CHEST PAIN Diagnosis Discharge Diagnosis (1) Chest pain: Status: Acute Code(s): R07.9 - Chest pain, unspecified Qualifiers: Chest pain type: unspecified Qualified Code(s): R07.9 - Chest pain, unspecified (2) Paroxysmal A-fib: Status: Acute Code(s): I48.0 - Paroxysmal atrial fibrillation Medications at Discharge Home Medications cholecalciferol (vitamin D3) 25 mcg (1,000 unit) tablet (Vitamin D3) 25 mcg PO DAILY SUPPLEMENT 01/11/22 donepezil 10 mg tablet 10 mg PO QHS DEMENTIA 01/11/22 aripiprazole 2 mg tablet 2 mg PO DAILY mental health 06/11/23 meloxicam 15 mg tablet 15 mg PO DAILY pain 06/11/23 tamsulosin 0.4 mg capsule 0.4 mg PO DAILY prostate 06/11/23 Hospital Course Procedures EKG, Stress test, Transthoracic echo and - (Chest x-ray) Summary of Care Provided Minutes Spent on Discharge: 35 Hospital Course: Patient is an 88-year-old male who presented to [facility] ED on 06/11/2023 with episode of chest pain and lightheadedness at home. Short hospital course as noted below. Patient discharged home with no therapy needs in stable condition on 06/11. 1. Chest pain, ACS ruled out Presented via EMS after having episode of chest pain at rest while at home. Troponin trend 38 > 66 > 76. EKG on admit showed normal sinus rhythm, bifascicular block, no ST changes concerning for ischemia. Echo showed EF 55 to 60%, grade 1 diastolic dysfunction, normal LA and RA, no significant valvular disease. Nuclear stress test showed normal LV systolic function normal LV wall motion, was negative for reversible myocardial ischemia. ? Unclear etiology for episode of chest pain. ACS ruled out. Remained hemodynamically stable during hospitalization. Heart monitor ordered on discharge as noted below. No new medications needed on discharge. 2. Concern for new onset proximal A-fib Prehospital EKG from EMS showed possible A-fib with RVR. EKG on admit with normal sinus rhythm with bifascicular block as noted above. Telemetry showed normal sinus rhythm throughout hospitalization. ? Seems less likely that patient had an episode of A-fib with RVR but cannot rule out. 30-day ekg monitor ordered on discharge. Patient with resting heart rate in the 50s to low 60s consistently during admission likely due to donepezil, did not prescribe beta-thierry on discharge. Chronic medical conditions: ? Dementia: Continue home donepezil. ? BPH with obstructive symptoms: Continue home tamsulosin. ? Depression: Continue home Abilify. Total clinical time spent by myself addressing the patient's medical issues, reviewing all the data, and collaborating with patient's care team: 35 minutes. Physical Exam Const alert, no apparent distress and average body habitus Constitutional Narrative: Pleasant elderly male, obese, sitting comfortably in bedside chair, making appropriate eye contact and answering some questions appropriately but had mild degree of confusion that family notes is his baseline dementia, otherwise no acute distress. General Appearance: cooperative and comfortable HEENT normocephalic, head/scalp atraumatic, hearing grossly normal bilaterally and nasal mucous membranes and turbinates normal Eyes PERRL, EOMs intact bilaterally and conjunctivae normal Neck full ROM Chest inspection of chest normal Resp normal respiratory effort, normal air movement, no use of accessory muscles and clear to auscultation bilaterally Cardio regular rate, regular rhythm, no murmurs and peripheral pulses 2+ throughout GI normal to inspection, nondistended, normoactive bowel sounds, soft to palpation, non-tender and non-distended Back/Spine normal ROM Extremity normal to inspection, full ROM and no pedal edema Skin no rashes or lesions noted Neuro moves all extremities and no focal motor deficits Speech: speech normal Psych mental status grossly normal Weight / BMI Weight Weight: 90.6 kg Body Mass Index (BMI) 30.2 ABG / Lab / Microbiology Data 06/12/23 02:19 06/12/23 02:19 Laboratory: Laboratory Results - last 24 hr 06/11/23 19:20: WBC 5.9, RBC 4.51 L, Hgb 13.7, Hct 42.3, MCV 93.8, MCH 30.4, MCHC 32.4, RDW Std Deviation 50.2 H, RDW Coeff of Aleksandra 14.5, Plt Count 155, MPV 9.3, Immature Gran % (Auto) 0.700, Neut % (Auto) 72.2 H, Lymph % (Auto) 17.2 L, [place] % (Auto) 7.3, Eos % (Auto) 1.9, Baso % (Auto) 0.7, Absolute Neuts (auto) 4.3, Absolute Lymphs (auto) 1.02, Nucleated RBC % 0, Sodium 140, Potassium 4.0, Chloride 109 H, Carbon Dioxide 27.0, Anion Gap 4 L, BUN 25 H, Creatinine 1.01, Estim Creat Clear Calc 59.81, Est GFR (MDRD) Af Amer 90, Est GFR (MDRD) Non-Af 74, BUN/Creatinine Ratio 24.8 H, Glucose 100, Calcium 8.6, Troponin I High Sens 38 06/11/23 22:00: Troponin I High Sens 66 06/12/23 02:19: WBC 4.8, RBC 4.28 L, Hgb 12.7 L, Hct 39.7 L, MCV 92.8, MCH 29.7, MCHC 32.0, RDW Std Deviation 50.1 H, RDW Coeff of Aleksandra 14.6, Plt Count 140 L, MPV 9.1, Immature Gran % (Auto) 0.600, Neut % (Auto) 65.8, Lymph % (Auto) 22.6, [place] % (Auto) 7.9, Eos % (Auto) 2.5, Baso % (Auto) 0.6, Absolute Neuts (auto) 3.1, Absolute Lymphs (auto) 1.08, Nucleated RBC % 0, Sodium 139, Potassium 3.9, Chloride 110 H, Carbon Dioxide 24.0, Anion Gap 5, BUN 22 H, Creatinine 1.02, Estim Creat Clear Calc 56.82, Est GFR (MDRD) Af Amer 89, Est GFR (MDRD) Non-Af 74, BUN/Creatinine Ratio 21.6 H, Glucose 98, Calcium 8.2 L, Total Bilirubin 0.40, AST 12 L, ALT 11 L, Alkaline Phosphatase 48, Troponin I High Sens 76, Total Protein 5.9 L, Albumin 3.4, Globulin 2.5, Albumin/Globulin Ratio 1.4, Triglycerides 113, Cholesterol 193, LDL Cholesterol 132 H, VLDL Cholesterol 23, HDL Cholesterol 38 L, TSH 1.06, Ethyl Alcohol 3.0 Radiography Diagnostic Testing: Radiology Impression Chest X-Ray 06/11/23 20:05 IMPRESSION: No active disease. Electronically Signed: Pablito Kline MD at 20:29 EDT , D/C Instructions Discharge Diet: No restrictions Weight Bearing Status: Full weight bearing Meaningful Use Info Meaningful Use Diagnoses (Choose all that apply): None applicable Discharge Plan Admission Admit Date/Time: 06/11/23 23:29 Primary Reason for Your Visit: Chest pain, concern for newly diagnosed A-fib with RVR Attending Provider: Omar Piña Primary Care Provider: Agusto Wong Consulting Providers: Jerson Saucedo Instructions Additional Instructions / Restrictions: Please wear heart monitor for 30 days as we discussed. Cardiology office will call to schedule an appointment for you as needed. Discharge Orders/Prescriptions Prescriptions: Continued donepezil 10 mg Tablet 10 mg PO QHS cholecalciferol (vitamin D3) [Vitamin D3] 25 mcg (1,000 unit) Tablet 25 mcg PO DAILY meloxicam 15 mg tablet 15 mg PO DAILY tamsulosin 0.4 mg capsule 0.4 mg PO DAILY aripiprazole 2 mg tablet 2 mg PO DAILY Other Ambulatory Orders: 30 Day Event Recorder Preventi (Urgent) Timeframe: 1 Month Facility: [facility] - Location: Cardiovascular Services Ordered By: Dr. Omar Piña Referrals / Follow Up: Agusto Wong DO [Primary Care Provider] - Disposition Disposition (needs filled in before D/C Order can be placed): Home, Self Care Charges/Coding Visit Charges Inpatient E&M: 73991 Disch Hosp >30min
--- NOTE | 2023-06-12 14:29 | PHA.DC.MR.R ---
Pharmacy [place] Med Reconciliation Pharmacy Service has performed discharge medication reconciliation for this patient. The patient's discharge medication list was reviewed for discrepancies and discrepancies were resolved. Medications at Discharge Home Medications cholecalciferol (vitamin D3) 25 mcg (1,000 unit) tablet (Vitamin D3) 25 mcg PO DAILY SUPPLEMENT 01/11/22 donepezil 10 mg tablet 10 mg PO QHS DEMENTIA 01/11/22 aripiprazole 2 mg tablet 2 mg PO DAILY 06/11/23 meloxicam 15 mg tablet 15 mg PO DAILY 06/11/23 tamsulosin 0.4 mg capsule 0.4 mg PO DAILY 06/11/23
--- NOTE | 2023-06-12 15:03 | CASEMGMT ---
Patient has order for discharge. RN CM in to discuss needs at discharge. Family at bedside. Patient and family deny needs or help at discharge. Patient and family had no further questions or concerns.
[2023-06-12 15:15] VITALS: BP 123/64; PULSE 78; RESP 16; TEMP 36.6; O2SAT 98
== END 2023-06-12 14:25 | disposition home or self-care (01) ==
LOC: ED 22:48 → PCU 23:43
PROVIDERS: Admitting Provider Internal Medicine; Emergency Provider Emergency Medicine; Referring Provider Internal Medicine; Visit Provider Hospitalist
DX: I48.0 Paroxysmal atrial fibrillation (principal); F03.90 Unspecified dementia, unspecified severity, without behavioral disturbance, psychotic disturbance, mood disturbance, and anxiety; I45.2 Bifascicular block; Z87.891 Personal history of nicotine dependence; I10 Essential (primary) hypertension; E78.00 Pure hypercholesterolemia, unspecified; Z79.899 Other long term (current) drug therapy; E66.9 Obesity, unspecified; Z68.33 Body mass index [BMI] 33.0-33.9, adult; N40.1 Benign prostatic hyperplasia with lower urinary tract symptoms; M19.90 Unspecified osteoarthritis, unspecified site; N13.8 Other obstructive and reflux uropathy
CPT/HCPCS: 36415; 71045; 78452; 80048; 80053; 80061; 80320; 84443; 84484; 85025; 93005; 93017; 93306; 99221; 99285; A9500; Q9957; A4216; C8929; G0378; G0480; J2785